=== PATIENT | male | born 1975 | race American Indian/Alaskan Native ===

== ENCOUNTER 2020-09-01 07:44 | Emergency (ER) | payer SELFPAY ==
[2020-09-01 07:56] VITALS: BP 128/72
[2020-09-01 08:29] LABS: Basophils % (Auto) 1.1 % (0.0-1.8); Eosinophils # (Auto) 0.4 K/mm3 (0.0-0.4); Eosinophils % (Auto) 8.5 % (0.0-4.3); Hematocrit 42.3 % (35.5-45.6); Hemoglobin 14.6 gm/dl (11.8-15.2); Lymphocytes # (Auto) 1.5 K/mm3 (1.2-5.4); Lymphocytes % (Auto) 34.9 % (13.4-35.0); Mean Corpuscular HGB Conc 34 % (32-34); Mean Corpuscular Volume 86 fl (84-94); Monocytes # (Auto) 0.3 K/mm3 (0.0-0.8); Monocytes % (Auto) 7.8 % (0.0-7.3); Platelet Count 258 K/mm3 (140-440); Red Blood Count 4.94 M/mm3 (3.65-5.03); Red Cell Distribution Width 14.9 % (13.2-15.2)
--- NOTE | 2020-09-01 08:38 | Emergency Department Report ---
ED Abdominal Pain HPI - General Chief Complaint: Abdominal Pain Stated Complaint: ABD PAIN Time Seen by Provider: 09/01/20 08:12 Source: patient Mode of arrival: Ambulatory Limitations: No Limitations - History of Present Illness Initial Comments: This is a 45-year-old male who presents the emergency department chief complaint of right inguinal pain over the past 2 weeks. He states the pain is worse when he leans forward or straightens out or if he lifts any heavy objects. 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 He initially was having some dental pain and took ibuprofen for quite a few days and started to have some abdominal pain so he thought maybe this was related to an ulcer so he started take Prilosec and the pain improved. He states he does have some occasional pain when he eats. He denies any associated fever, chills, night s weats, headache, dizziness, blurry vision, nausea, vomiting, diarrhea, chest pain, shortness of breath, weakness or any other associated symptoms. He denies any known past medical history, current medication use or known allergies to medications. - Related Data Previous Rx's Medication Instructions Recorded Last Taken Type Acetaminophen 500 mg PO Q6HR #30 capsule 09/01/20 Unknown Rx Allergies Allergy/AdvReac Type Severity Reaction Status Date / Time No Known Allergies Allergy Verified 02/07/14 16:38 ED Review of Systems ROS: Stated complaint: ABD PAIN Other details as noted in HPI Comment: All other systems reviewed and negative Constitutional: denies: chills, fever Eyes: denies: eye pain, eye discharge, vision change ENT: denies: ear pain, throat pain Respiratory: denies: cough, shortness of breath, wheezing Cardiovascular: denies: chest pain, palpitations Endocrine: no symptoms reported Gastrointestinal: as per HPI, abdominal pain. denies: nausea, vomiting, diarrhea Genitourinary: denies: urgency, dysuria Musculoskeletal: denies: back pain, joint swelling, arthralgia Skin: denies: rash, lesions Neurological: denies: headache, weakness, paresthesias Psychiatric: denies: anxiety, depression Hematological/Lymphatic: denies: easy bleeding, easy bruising ED Past Medical Hx - Past Medical History Previous Medical History?: No Hx Psychiatric Treatment: (anxiety) - Surgical History Past Surgical History?: No - Social History Smoking Status: Current Every Day Smoker Substance Use Type: None - Medications Home Medications: Home Medications Medication Instructions Recorded Confirmed Last Taken Type Acetaminophen 500 mg PO Q6HR #30 capsule 09/01/20 Unknown Rx ED Physical Exam - General Limitations: No Limitations General appearance: alert, in no apparent distress - Head Head exam: Present: atraumatic, normocephalic - Eye Eye exam: Present: normal appearance, PERRL, EOMI Pupils: Present: normal accommodation - ENT ENT exam: Present: normal exam, normal orophraynx, mucous membranes moist - Neck Neck exam: Present: normal inspection, full ROM. Absent: tenderness, meningis mus - Respiratory Respiratory exam: Present: normal lung sounds bilaterally. Absent: respiratory distress, wheezes, rales, rhonchi, stridor, chest wall tenderness - Cardiovascular Cardiovascular Exam: Present: regular rate, normal rhythm, normal heart sounds. Absent: systolic murmur, diastolic murmur, rubs, gallop - GI/Abdominal GI/Abdominal exam: Present: soft, normal bowel sounds, other (Negative McBurney's point tenderness, negative Garcia sign, no rebound or guarding.). A bsent: distended, tenderness, guarding, rebound, rigid, pulsatile mass - Rectal Rectal exam: Present: deferred - exam: Present: normal inspection, other (Normal bilateral vertical testicular lie, no edema, no testicular or epididymal tenderness. There is a small indirect inguinal hernia on the right that is self reducing. There is none on the left.). Absent: testicular tenderness External exam: Present: normal external exam. Absent: lesions - Extremities Exam Extremities exam: Present: normal inspection, full ROM, normal capillary refill. Absent: tenderness, calf tenderness - Back Exam Back exam: Present: normal inspection, full ROM. Absent: tenderness, CVA tenderness (R), CVA tenderness (L) - Neurological Exam Neurological exam: Present: alert, oriented X3, normal gait - Psychiatric Psychiatric exam: Present: normal affect, normal mood - Skin Skin exam: Present: warm, dry, intact, normal color. Absent: rash ED Course Vital Signs 09/01/20 07:56 Temperature 98.2 F Pulse Rate 84 Respiratory 16 Rate Blood Pressure 128/72 [Right] O2 Sat by Pulse 100 Oximetry - Reevaluation(s) Reevaluation #1: 12/07/20 08:37 Patient is nontoxic in no acute distress. His exam was consistent with an indirect inguinal hernia on the right that is small and does not appear incarcerated or strangulated. The abdominal exam was otherwise benign. Labs and urine were ordered in triage and are pending. If normal patient be discharged with outpatient surgery follow-up recommended ice and return to the ER with any change or worsening symptoms. ED Medical Decision Making - Lab Data Result diagrams: 09/01/20 08:18 09/01/20 08:18 Lab Results 09/01/20 09/01/20 09/01/20 Range/Units 08:18 08:18 Unknown WBC 4.4 L (4.5-11.0) K/mm3 RBC 4.94 (3.65-5.03) M/mm3 Hgb 14.6 (11.8-15.2) gm/dl Hct 42.3 (35.5-45.6) % MCV 86 (84-94) fl MCH 30 (28-32) pg MCHC 34 (32-34) % RDW 14.9 (13.2-15.2) % Plt Count 258 (140-440) K/mm3 Lymph % (Auto) 34.9 (13.4-35.0) % [place] % (Auto) 7.8 H (0.0-7.3) % Eos % (Auto) 8.5 H (0.0-4.3) % Baso % (Auto) 1.1 (0.0-1.8) % Lymph # (Auto) 1.5 (1.2-5.4) K/mm3 [place]oughton # (Auto) 0.3 (0.0-0.8) K/mm3 Eos # (Auto) 0.4 (0.0-0.4) K/mm3 Baso # (Auto) 0.0 (0.0-0.1) K/mm3 Seg Neutrophils % 47.7 (40.0-70.0) % Seg Neutrophils # 2.1 (1.8-7.7) K/mm3 Sodium 140 (137-145) mmol/L Potassium 4.1 (3.6-5.0) mmol/L Chloride 105.7 (98-107) mmol/L Carbon Dioxide 28 (22-30) mmol/L Anion Gap 10 mmol/L BUN 12 (9-20) mg/dL Creatinine 0.9 (0.8-1.3) mg/dL Estimated GFR > 60 ml/min BUN/Creatinine Ratio 13 % Glucose 93 (75-100) mg/dL Calcium 9.8 (8.4-10.2) mg/dL Total Bilirubin 0.30 (0.1-1.2) mg/dL AST 15 (5-40) units/L ALT 10 (7-56) units/L Alkaline Phosphatase 57 (35-129) units/L Total Protein 6.7 (6.3-8.2) g/dL Albumin 4.0 (3.9-5) g/dL Albumin/Globulin Ratio 1.5 % Urine Color Yellow (Yellow) Urine Turbidity Clear (Clear) Urine pH 6.0 (5.0-7.0) Ur Specific Julian 1.024 (1.003-1.030) Urine Protein <15 mg/dl (Negative) mg/dL Urine Glucose (UA) Neg (Negative) mg/dL Urine Ketones Neg (Negative) mg/dL Urine Blood Neg (Negative) Urine Nitrite Neg (Negative) Urine Bilirubin Neg (Negative) Urine Urobilinogen 2.0 (<2.0) mg/dL Ur Leukocyte Esterase Neg (Negative) Urine WBC (Auto) 1.0 (0.0-6.0) /HPF Urine RBC (Auto) 4.0 (0.0-6.0) /HPF U Epithel Cells (Auto) 1.0 (0-13.0) /HPF Urine Mucus 3+ /HPF - Medical Decision Making Patient nontoxic in no acute distress. Vital signs are stable. His abdominal exam was benign. He did have a indirect inguinal hernia on the right that was s mall and did not appear incarcerated or strangulated. I recommended warm compresses with ice and Tylenol for pain and follow-up outpatient surgery. He was instructed to return to the emergency department if he develops any change or worsening symptoms. He verbalized understand the diagnosis, treatment plan and follow-up instructions and all his questions were answered. - Differential Diagnosis Hernia, UTI, varicocele Critical care attestation.: If time is entered above; I have spent that time in minutes in the direct care of this critically ill patient, excluding procedure time. ED Disposition Clinical Impression: Right inguinal hernia Disposition: DC-01 TO HOME OR SELFCARE Is pt being admited?: No Condition: Stable Instructions: Inguinal Hernia, Adult, [id number] Prescriptions: Acetaminophen 500 mg PO Q6HR #30 capsule Referrals: PRIMARY CAREMD [Primary Care Provider] - 3-5 Days PAOLA RAHMAN MD [Staff Physician] - 3-5 Days Forms: Work/School Release Form(ED) Time of Disposition: 09:18
[2020-09-01 09:00] LABS: Bilirubin,Urine NEG (Negative); Blood,Urine NEG (Negative); Color,Urine Yellow (Yellow); Mucus,Urine 3+ /HPF; Protein,Urine <15 mg/dL mg/dL (Negative)
[2020-09-01 09:15] LABS: Alanine Aminotransferase 10 units/L (7-56); BUN/Creatinine Ratio 13; Blood Urea Nitrogen 12 mg/dL (9-20); Calcium 9.8 mg/dL (8.4-10.2); Hemolysis Index 1
== END 2020-09-01 09:27 | disposition home or self-care (01) ==
LOC: ED 07:44
DX: K40.90 Unilateral inguinal hernia, without obstruction or gangrene, not specified as recurrent (principal)
CPT/HCPCS: 36415; 80053; 81001; 85025; 99283

== ENCOUNTER 2020-10-10 07:43 | Emergency (ER) | payer SELFPAY ==
[2020-10-10 07:52] VITALS: BP 117/73
--- NOTE | 2020-10-10 08:02 | Emergency Department Report ---
Stated Complaint: ABD BURNING Time Seen by Provider: 10/10/20 07:49 - HPI History of Present Illness: 45-year-old -[place] male patient presents with complaints of epigastric burning pain intermittently x3 months. Patient states he was diagnosed with GERD after taking ibuprofen for tooth ache. He states recently the burning sensation has worsened and he has been taking Prilosec for the past 4 days with mild improvement in his symptoms. He denies any nausea/vomiting/diarrhea, melen a/hematochezia, fever/chills/sweats, history of abdominal surgeries, chest pain, or shortness of breath. Patient rates his pain as a 4/10 in severity. Pain worsens with eating certain foods Vitals are normal. No abdominal tenderness to palpation noted on exam. Symptoms appear to be consistent with GERD/gastritis. Discussed dietary changes and avoidance of NSAIDs. Recommend follow-up with GI for further evaluation of GERD/gastritis. Patient is well-appearing and stable for discharge home. Discussed signs and symptoms that should prompt immediate return to the emergency department in detail with patient who verbalized understanding. - Exam Vital Signs: Vital Signs 10/10/20 07:51 Temperature 97.6 F Pulse Rate 87 Respiratory 18 Rate Blood Pressure 117/73 O2 Sat by Pulse 98 Oximetry MSE screening note: Focused history and physical exam performed. Due to findings the following was ordered: ED Disposition for MSE Clinical Impression: Gastritis Qualifiers: Gastritis type: other gastritis Chronicity: chronic Gastritis bleeding: presence of bleeding unspecified Qualified Code(s): K29.50 - Unspecified chronic gastritis without bleeding Disposition: MED SCREENING EXAM-LEFT Is pt being admited?: No Condition: Stable Instructions: Gastritis, Adult, Food Choices for Gastroesophageal Reflux Disease, Adult, Gastroesophageal Reflux Disease, Adult Prescriptions: Sucralfate [Carafate] 1 gm PO QID 10 Days #40 tablet Pantoprazole [Protonix TAB] 40 mg PO QDAY #30 tablet Referrals: [facility] [Provider Group] - 3-5 Days ED Physical Exam - General Limitations: No Limitations General appearance: alert, in no apparent distress - Head Head exam: Present: atraumatic, normocephalic - Eye Eye exam: Present: normal appearance. Absent: scleral icterus - Respiratory Respiratory exam: Present: normal lung sounds bilaterally. Absent: respiratory distress - Cardiovascular Cardiovascular Exam: Present: regular rate, normal rhythm - GI/Abdominal GI/Abdominal exam: Present: soft, normal bowel sounds. Absent: distended, tenderness, guarding, rebound, rigid - Back Exam Back exam: Present: full ROM - Neurological Exam Neurological exam: Present: alert, oriented X3 - Psychiatric Psychiatric exam: Present: normal affect, normal mood - Skin Skin exam: Present: warm, dry, intact, normal color. Absent: rash ED Review of Systems ROS: Stated complaint: ABD BURNING Other details as noted in HPI Constitutional: denies: chills, diaphoresis, fever, malaise, weakness Respiratory: denies: cough, shortness of breath Cardiovascular: denies: chest pain Gastrointestinal: abdominal pain. denies: nausea, vomiting, diarrhea, constipation, hematemesis, melena, hematochezia Neurological: denies: headache Hematological/Lymphatic: denies: easy bleeding, easy bruising, swollen glands
== END 2020-10-10 08:41 | disposition left against medical advice (07) ==
LOC: ED 07:43
DX: K29.70 Gastritis, unspecified, without bleeding (principal); Z53.21 Procedure and treatment not carried out due to patient leaving prior to being seen by health care provider